=== PATIENT | male | born 1965 | race Caucasian/White ===

== ENCOUNTER 2017-12-26 12:21 | Emergency (ER) | payer OTHER ==
[2017-12-26 12:23] VITALS: BP 163/73; PULSE 94; RESP 19; TEMP 98; O2SAT 98
[2017-12-26] MEDS ORDERED: LIDOCAINE HCL 1% PF 30 ML VIAL INFIL ONE (12:45)
[2017-12-26] MEDS ORDERED: TETANUS/DIPHTHERIA TOXOID ADULT 0.5 ML VIAL IM ONE (12:45)
[2017-12-26] MEDS ORDERED: CLINDAMYCIN PHOS 600 MG/4 ML VIAL IM ONE (12:45)
[2017-12-26] MEDS ORDERED: BUPIVACAINE HCL PF 0.5% 10 ML VIAL INFIL ONE (12:45)
[2017-12-26] MEDS ORDERED: ACETAMINOPHEN/HYDROcodone 325 MG/10 MG TAB PO ONE (12:45)
[2017-12-26] MEDS ORDERED: HYDR-3516 PO (14:16)
[2017-12-26] MEDS ORDERED: CLIN150C14 PO (14:16)
[2017-12-26] MEDS ORDERED: DICL75TA PO (14:16)
--- NOTE | 2017-12-26 14:27 | PD ---
HPI Chief Complaint: Injury Time Seen by Provider: 12:33 Travel History International Travel<30 days: No Contact w/Intl Traveler<30days: No Traveled to known affect area: No History of Present Illness HPI 52-year-old male the presents to the ED via private vehicle for evaluation of injury to his left hand. Per patient he was using a nail gun when he got jammed and trying to jam that he accidentally nail his third to second digit of the left hand. He attempted to take it out himself but he was unsuccessful. He comes here for evaluation. Per patient he is up-to-date with his tetanus within the past 7 years. He denies any other medical issues. Takes no medications daily basis. Denies any other injuries. No fevers chills or sweats. Allergies to penicillin. States that his pain currently 7 out of 10 especially with movement. No numbness, tingling, weakness. PFSH Past Medical History Diminished Hearing: No Genitourinary: Yes Kidney Stones: Yes Tetanus Vaccination: > 5 Years Past Surgical History Eye Surgery: Yes (squint sx) Social History Alcohol Use: Yes Tobacco Use: Yes Substance Use: No Allergies-Medications (Allergen,Severity, Reaction): Coded Allergies: penicillin G (Verified Allergy, Unknown, rash, 12/26/17) Reported Meds & Prescriptions Reported Meds & Active Scripts Active Clindamycin (Clindamycin HCl) 150 Mg Cap 300 Mg PO Q6H [address] (Diclofenac Sodium) 75 Mg Tabdr 75 Mg PO BID PRN Hydrocodone-Acetaminophen 5-325 mg Tab 1 Tab PO Q6H PRN Review of Systems Except as stated in HPI: all other systems reviewed are Neg Physical Exam Narrative GENERAL: SKIN: Warm and dry. HEAD: Atraumatic. Normocephalic. EYES: Pupils equal and round. No scleral icterus. No injection or drainage. ENT: No nasal bleeding or discharge. Mucous membranes pink and moist. NECK: Trachea midline. No JVD. CARDIOVASCULAR: Regular rate and rhythm. RESPIRATORY: No accessory muscle use. Clear to auscultation. Breath sounds equal bilaterally. GASTROINTESTINAL: Abdomen soft, non-tender, nondistended. Hepatic and splenic margins not palpable. MUSCULOSKELETAL: Extremities without clubbing, cyanosis, or edema. No obvious deformities. Patient has full range of motion of all fingers with exception of the second and third digits of the left hand. Patient has a nail in between the proximal aspect of the digits with involvement of the skin on the third digit and what appears to be bony involvement of the left second digit. Nail appears to have gone into the palmar aspect of the third digit and came out on the dorsal PIP area of the left second digit. There is 4 puncture wounds with the nail in them. Good capillary refill. Sensation intact bilaterally. Patient can move the finger secondary to the nail being stuck in there. He can move the third digit to flex and extend but with some difficulty because of the nail but he cannot move the second digit at all secondary to significant discomfort. NEUROLOGICAL: Awake and alert. No obvious cranial nerve deficits. Motor grossly within normal limits. Five out of 5 muscle strength in the arms and legs. Normal speech. PSYCHIATRIC: Appropriate mood and affect; insight and judgment normal. Data Data Last Documented VS Vital Signs Date Time Temp Pulse Resp B/P (MAP) Pulse Ox O2 Delivery O2 Flow Rate FiO2 12/26/17 12:34 89 18 98 Room Air 12/26/17 12:23 98.0 163/73 (103) Orders Orders Acetamin-Hydrocod 325-10 Mg ([place] 10-32 (12/26/17 12:45) Hand, Limited (2vws) (12/26/17 12:39) Ice/Cold Pack (12/26/17 12:39) Lidocaine Pf 1% Inj (Xylocaine-Mpf 1% In (12/26/17 12:45) Wound Care (12/26/17 12:39) Clindamycin Inj (Cleocin Inj) (12/26/17 12:45) Tetanus/Diphtheria Tox Adult (Tetanus/Di (12/26/17 12:45) Bupivacaine Pf 0.5% Inj (Marcaine Pf 0.5 (12/26/17 12:45) Splint Or Brace Apply/Monitor (12/26/17 13:41) Finger ([id number]) (12/26/17 ) Ed Discharge Order (12/26/17 15:06) Finger Splint (12/26/17 ) [facility] Medical Decision Making Medical Screen Exam Complete: Yes Emergency Medical Condition: Yes Medical Record Reviewed: Yes Interpretation(s) Last Impressions Hand X-Ray 12/26/17 4369 Signed Impressions: CONCLUSION: Nail through the distal aspect of the second proximal phalanx with fracture. Finger X-Ray 12/26/17 0000 Signed Impressions: CONCLUSION: Puncture with fracture proximal phalanx extending into the PIP joint. Near-anatomic alignment. Differential Diagnosis Fracture versus sprain versus strain versus foreign body versus laceration versus abrasion versus puncture wound Narrative Course 52-year-old male that presents to the ED for evaluation of nail to the left hand. Patient was properly examined and was found to have signs and symptoms consistent appears to be a nail the left hand third and second digits. Imaging was ordered. After explained procedure to the patient and he agreed to it foreign body was removed a stating procedure note by me and my attending Dr. Richards. X-ray did show what appears to be fracture. Discussed this with my attending who recommends a speak with Dr. Earl. Dr. Earl recommends splint, antibiotics, pain medication and follow-up outpatient. Patient was told this and agrees with plan. Partially patient lives in [place] so he was told that if he cannot come here he can follow-up with in the area where he lives. Patient was given first dose of antibiotic here. Given pain medication here. Given splint. Patient was given specific instructions that he needs to follow with hand surgeon to make sure that this heals properly as he could lose potentially function of his digit without proper care. He agrees and understands this plan. Told that if anything changes he is to come back to the ED. Follow-up with PCP. See ED if worsening symptoms. Given tetanus booster here as he has been out of his tetanus for at least 5 years and he got metal on his hand. Procedures Procedure Narrative LACERATION/foreign body removal LOCATION: left 2nd and 3rd finger LENGTH: nail on 2nd and 3rd fingers NUMBER OF STITCHES/JOYCE: No sutures, removal of nail REPAIR: The area of the laceration was prepped with Betadine and sterilely draped. The laceration was infiltrated with 0.5% Bupivacaine and Lidocaine for digital block. The wound was copiously irrigated and explored without evidence of foreign body, tendon injury or neurovascular injury other than nail. Nail removed with pincers with minimal discomfort for the patient. This was a 1 layer repair. A sterile dressing was applied. The patient was advised to keep the dressing clean and dry. Patient tolerated the procedure well. Diagnosis Primary Impression: Wound of finger from metal nail Qualified Codes: S61.209A - Unspecified open wound of unspecified finger without damage to nail, initial encounter; W45.0XXA - Nail entering through skin , initial encounter Additional Impression: Finger fracture, left Qualified Codes: S62.611A - Displaced fracture of proximal phalanx of left index finger, initial encounter for closed fracture Referrals: Hermelinda Earl MD Patient Instructions: General Instructions, Narcotic given in the ED Additional Instructions: Take medications as prescribed. Follow-up with PCP or hand specialist of choice to make sure this heals appropriately. See ED for any worsening symptoms. Watch for any signs of infection. Any signs of redness, pus get evaluated by ED immediately. Do not drink or drive while taking pain medication. Apply ice or heat as needed for pain Med/Other Pt SpecificInfo: Prescription(s) given, Wound Care Scripts Clindamycin (Clindamycin) 150 Mg Cap 300 MG PO Q6H for Infection for 7 Days, #56 CAP 0 Refills Prov: Brian Arteaga MD 12/26/[address] (Diclofenac Sodium DR) 75 Mg Tabdr 75 MG PO BID Y for PAIN SCALE 1 TO 10, #20 TAB 0 Refills Prov: Brian Arteaga MD 12/26/17 Hydrocodone-Acetaminophen (Hydrocodone-Acetaminophen) 5-325 mg Tab 1 TAB PO Q6H Y for PAIN, #12 TAB 0 Refills Prov: Brian Arteaga MD 12/26/17 Disposition: 01 DISCHARGE HOME Condition: Stable Julio Oglesby Dec 26, 2017 14:27
--- NOTE | 2017-12-26 14:46 | RADRPT ---
EXAM DATE: 12/26/2017 1:30 PM EDT AGE/SEX: 52 years / Male INDICATIONS: Nail went in left hand. CLINICAL DATA: This is the patient's initial encounter. Patient reports that signs and symptoms have been present for 1 day and indicates a pain score of Nonresponsive. MEDICAL/SURGICAL HISTORY: . none known, pt doesn't speak Greek . none known COMPARISON: No prior exams available for comparison. FINDINGS: There is a nail through the distal aspect of the second proximal phalanx with fracture in the distal aspect of the second proximal phalanx extending into the PIP joint. CONCLUSION: Nail through the distal aspect of the second proximal phalanx with fracture. Electronically signed by: Asher Romero MD 12/26/2017 2:45 PM EDT
--- NOTE | 2017-12-26 15:00 | PD ---
Data Data Last Documented VS Vital Signs Date Time Temp Pulse Resp B/P (MAP) Pulse Ox O2 Delivery O2 Flow Rate FiO2 12/26/17 12:34 89 18 98 Room Air 12/26/17 12:23 98.0 163/73 (103) Orders Orders Acetamin-Hydrocod 325-10 Mg ([place] 10-32 (12/26/17 12:45) Hand, Limited (2vws) (12/26/17 12:39) Ice/Cold Pack (12/26/17 12:39) Lidocaine Pf 1% Inj (Xylocaine-Mpf 1% In (12/26/17 12:45) Wound Care (12/26/17 12:39) Clindamycin Inj (Cleocin Inj) (12/26/17 12:45) Tetanus/Diphtheria Tox Adult (Tetanus/Di (12/26/17 12:45) Bupivacaine Pf 0.5% Inj (Marcaine Pf 0.5 (12/26/17 12:45) Splint Or Brace Apply/Monitor (12/26/17 13:41) Finger ([id number]) (12/26/17 ) MDM Supervised Visit with [facility]ALI: Yes Narrative Course I, Dr. Arteaga, have reviewed the advance practice practitioner's documentation and am in agreement, met with the patient face to face, made the diagnosis, and the medical decision making was done by me. *My assessment and Findings: he has impaled 2 of his fingers with a nail gun and suffered fracture. It was removed, he was cleaned and splinted and will see hand surgeon as outpatient Diagnosis Primary Impression: Wound of finger from metal nail Qualified Codes: S61.209A - Unspecified open wound of unspecified finger without damage to nail, initial encounter; W45.0XXA - Nail entering through skin , initial encounter Additional Impression: Finger fracture, left Qualified Codes: S62.611A - Displaced fracture of proximal phalanx of left index finger, initial encounter for closed fracture Referrals: Hermelinda Earl MD Patient Instructions: General Instructions, Narcotic given in the ED Additional Instruction: Take medications as prescribed. Follow-up with PCP or hand specialist of choice to make sure this heals appropriately. See ED for any worsening symptoms. Watch for any signs of infection. Any signs of redness, pus get evaluated by ED immediately. Do not drink or drive while taking pain medication. Apply ice or heat as needed for pain Scripts Clindamycin (Clindamycin) 150 Mg Cap 300 MG PO Q6H for Infection for 7 Days, #56 CAP 0 Refills Prov: Brian Arteaga MD 12/26/[address] (Diclofenac Sodium DR) 75 Mg Tabdr 75 MG PO BID Y for PAIN SCALE 1 TO 10, #20 TAB 0 Refills Prov: Brian Arteaga MD 12/26/17 Hydrocodone-Acetaminophen (Hydrocodone-Acetaminophen) 5-325 mg Tab 1 TAB PO Q6H Y for PAIN, #12 TAB 0 Refills Prov: Brian Arteaga MD 12/26/17 Disposition: 01 DISCHARGE HOME Condition: Stable Brian Arteaga MD Dec 26, 2017 15:00
--- NOTE | 2017-12-26 15:03 | RADRPT ---
EXAM DATE: 12/26/2017 2:47 PM EDT AGE/SEX: 52 years / Male INDICATIONS: Post nail removal. CLINICAL DATA: This is the patient's initial encounter. Patient reports that signs and symptoms have been present for 1 day and indicates a pain score of Nonresponsive. MEDICAL/SURGICAL HISTORY: . nail in left hand today. . none known COMPARISON: No prior exams available for comparison. FINDINGS: Puncture wound with fracture proximal phalanx second digit consistent with nail gun injury. No foreig n body. No other fractures. CONCLUSION: Puncture with fracture proximal phalanx extending into the PIP joint. Near-anatomic alignment. Electronically signed by: Abdi Schneider MD 12/26/2017 3:01 PM EDT
== END 2017-12-26 15:40 | disposition home or self-care (01) ==
LOC: NEPE 12:21
DX: S61.201A Unspecified open wound of left index finger without damage to nail, initial encounter (principal); S61.203A Unspecified open wound of left middle finger without damage to nail, initial encounter; S62.611B Displaced fracture of proximal phalanx of left index finger, initial encounter for open fracture; Z72.0 Tobacco use; Z23 Encounter for immunization; W45.0XXA Nail entering through skin, initial encounter; W29.4XXA Contact with nail gun, initial encounter
CPT/HCPCS: 10120; 73120; 73140; 90471; 90714; 96372